=== PATIENT | female | born 1960 | race Hispanic/Latino ===

== ENCOUNTER 2021-07-02 08:19 | Emergency (ER) | payer MEDICARE, OTHER ==
[~2021-07-02] VITALS: Ht 157.5 cm; Wt 63.5 kg
[~2021-07-02 08:19] MED LIST: CIPR-278 PO
[2021-07-02] MEDS ORDERED: MELO7.5T12 PO (09:49)
[2021-07-02] MEDS ORDERED: ACET1TAB25 PO (09:49)
[2021-07-02] MEDS ORDERED: KETOROLAC 30MG VIAL (30MG/ML) ONE (09:56)
[2021-07-02] MEDS ORDERED: KETOROLAC 30MG VIAL (30MG/ML) IM ONE (10:00)
[2021-07-02 10:18] VITALS: BP 160/75
== END 2021-07-02 10:27 | disposition home or self-care (01) ==
LOC: EDH 08:19
DX: S52.592A Other fractures of lower end of left radius, initial encounter for closed fracture (principal); M19.90 Unspecified osteoarthritis, unspecified site; Z79.1 Long term (current) use of non-steroidal anti-inflammatories (NSAID); W18.31XA Fall on same level due to stepping on an object, initial encounter; Y93.89 Activity, other specified; Y92.89 Other specified places as the place of occurrence of the external cause; Y99.8 Other external cause status
CPT/HCPCS: 29125; 73110; 99283; J1885

== ENCOUNTER 2024-12-17 07:11 | Emergency (ER) | payer OTHER, MEDICARE ==
[~2024-12-17] VITALS: Ht 157.5 cm; Wt 55.3 kg
[~2024-12-17 07:11] MED LIST changes: +ACET-2079 PO; +MELO7.5T12 PO
--- NOTE | 2024-12-17 07:40 | ERN ---
General Chief Complaint: Rib Pain Stated Complaint: LEFT RIB CAGE PAIN Time Seen by MD: 07:15 History of Present Illness Initial Comments 64-year-old female who presents for left abdominal pain and left flank pain. Patient reports that eight days ago she had a fall where she fell to her back. No loss of consciousness. Since then she has been having pain to the left flank area. She reports that she feels pain "inside her organs." Mostly on the left flank and left upper quadrant. No nausea or vomiting diarrhea dysuria or fevers. There was no bruising or signs of major injury. Allergies: Coded Allergies: No Known Drug Allergies (Unverified Allergy, Unknown, 07/02/21) Home Meds Active Scripts Meloxicam (Mobic) 7.5 Mg Tablet, 7.5 MG PO DAILY, #10 TAB 0 Refills Prov:BRANDON MONET MD 07/02/21 Acetaminophen with Codeine (Acetaminophen-Cod #3 Tablet) 1 Each Tablet, 1 EACH PO Q6HPRN, #12 TAB 0 Refills Prov:BRANDON MONET MD 07/02/21 Ciprofloxacin HCl (Cipro) 500 Mg Tablet, 500 MG PO BID, #14 TAB Prov:ALDO MILLAN MD 11/02/15 Past Medical History Past Medical History: Arthritis Past Surgical History: None ROS Dictation CONSTITUTIONAL: No chills, no fever, no weakness, no diaphoresis, no malaise. HEAD/FACE: No signs of trauma. EENT: No eye pain, no blurred vision, no tearing, no double vision, no ear pain, no ear discharge, no nose pain, no nasal congestion, no throat pain, no throat swelling, no mouth pain. RESPIRATORY: No cough, no orthopnea, no SOB, no stridor, no wheezing. CARDIOVASCULAR: No chest pain, no edema, no palpitations, no syncope. GASTROINTESTINAL/ABDOMINAL: Left abdominal pain GENITOURINARY: No abnormal discharge, no dysuria, no frequent urination, no hematuria. No complaints of pain in the genitals. MUSCULOSKELETAL: Left flank pain INTEGUMENTARY: No change in color, no change in hair/nails, no dryness, no lesion, no lumps, no rash. NEUROLOGICAL/PSYCH: No anxiety, not depressed, no emotional problem, no headache, no numbness, no pre-existing deficit, no history of seizures, no tremors, no weakness. HEMATOLOGIC/LYMPHATIC: Not anemic, no history of blood clots, no apparent bleeding, no bruising, glands not swollen. All Systems Negative, Except as Noted. Physical Exam Physical Exam Dictation VITAL SIGNS: Reviewed. GENERAL APPEARANCE: Alert, oriented x3, no acute distress, obese. HEAD AND FACE: Non-traumatic. EYES: PERRL, pink conjunctivas, eyelid no trauma, anterior chamber clear. EARS: Pinnas intact and no signs of trauma or erythema. Ear canals clear and no discharge. TMs no erythema. NOSE: No discharge, no bleeding. OROPHARYNX: Mouth normal, teeth no caries, tongue pink. Pharynx clear, no erythema. Tonsils no exudates, no abscesses noted. Mucous membrane moist. NECK: Supple, non-tender, no thyromegaly, no masses, no JVD, no bruits. BREAST: Deferred. CHEST: No tenderness, no crepitus, no paradoxical movement, no retractions. LUNGS: Clear, well-ventilated, symmetric, no rales, no wheezing, no rhonchi, no stridor, good breath sounds bilaterally. HEART: Regular rate, regular rhythm, no murmur, no gallops. VASCULAR: No peripheral edema. ABDOMEN: Soft, positive bowel sounds, nondistended, no guarding, nontender, no rebound, no masses no hepatomegaly, no splenomegaly, no Rodarte's sign, no hernias. RECTAL: Deferred. GENITAL: Deferred. NEUROLOGICAL: Normal speech, gross motor function intact, gross sensory function intact. MUSCULOSKELETAL: Neck nontender, full range of motion, back nontender, full range of motion. EXTREMITIES: Nontender, full range of motion. SKIN: Color pink, dry, no turgor, no rash, no lacerations, no abrasions, no contusions. LYMPHATICS: Deferred. Results Laboratory and Microbiology Lab and Micro Result Laboratory Tests Test 12/17/24 08:00 12/17/24 08:34 White Blood Count 5.3 K/uL (4.8-10.8) Red Blood Count 3.48 MIL/uL (4.00-5.50) L Hemoglobin 11.4 g/dL (12.0-16.0) L Hematocrit 32.6 % (36-48) L Mean Corpuscular Volume 93.7 fL (79-99) Mean Corpuscular Hemoglobin 32.8 pg (27.0-33.0) Mean Corpuscular Hemoglobin Concent 35.0 g/dL (32.0-36.0) Red Cell Distribution Width 13.5 % (11.0-15.5) Platelet Count 432 K/uL (130-400) H Mean Platelet Volume 9.0 fL (7.5-10.5) Immature Granulocyte % (Auto) 0.2 % (0-1) Neutrophils (%) (Auto) 72.6 % (40.0-77.0) Lymphocytes (%) (Auto) 14.8 % (21.0-51.0) L Monocytes (%) (Auto) 10.3 % (3.0-13.0) Eosinophils (%) (Auto) 1.5 % (0.0-8.0) Basophils (%) (Auto) 0.6 % (0.0-5.0) Neutrophils # (Auto) 3.9 K/uL (1.8-7.7) Lymphocytes # (Auto) 0.8 K/uL (1.0-4.8) L Monocytes # (Auto) 0.6 K/uL (0.1-1.0) Eosinophils # (Auto) 0.08 K/uL (0.00-0.70) Basophils # (Auto) 0.03 K/uL (0.00-0.20) Absolute Immature Granulocyte (auto 0.01 K/uL (0-1) Nucleated Red Blood Cells 0.0 % (0.0-0.19) Sodium Level 129 mmol/L (136-145) L Potassium Level 3.7 mmol/L (3.5-5.1) Chloride Level 95 mmol/L (101-111) L Carbon Dioxide Level 28 mmol/L (21-32) Blood Urea Nitrogen 8 mg/dL (7-18) Creatinine 0.4 mg/dL (0.5-1.0) L Glomerular Filtration Rate Calc 109 mL/min (>90) Random Glucose 103 mg/dL (70-105) Total Calcium 9.6 mg/dL (8.5-10.1) Total Bilirubin 0.6 mg/dL (0.2-1.0) Direct Bilirubin 0.1 mg/dL (0.0-0.3) Aspartate Amino Transf (AST/SGOT) 28 U/L (10-37) Alanine Aminotransferase (ALT/SGPT) 28 U/L (12-78) Alkaline Phosphatase 101 U/L (50-136) Total Creatine Kinase 195 U/L (21-232) Troponin I High Sensitivity 5 ng/L (4-50) Total Protein 8.0 g/dL (6.0-8.3) Albumin 4.1 g/dL (3.5-5.0) Lipase 85 U/L (16-77) H Urine Color COLORLESS (YELLOW) Urine Appearance CLEAR (CLEAR) Urine pH 6.5 (5.0-8.0) Urine Specific Branch 1.004 (1.001-1.031) Urine Protein NEGATIVE mg/dL (NEGATIVE) Urine Glucose (UA) NEGATIVE mg/dL (NEGATIVE) Urine Ketones NEGATIVE mg/dL (NEGATIVE) Urine Occult Blood SMALL (NEGATIVE) H Urine Nitrate NEGATIVE (NEGATIVE) Urine Bilirubin NEGATIVE mg/dL (NEGATIVE) Urine Urobilinogen 0.2 mg/dL (0.2-1.0) Urine Leukocyte Esterase NEGATIVE Evelyn/uL Urine RBC 0-1 /HPF (0-1) Urine WBC None /HPF (0-1) Urine Bacteria None /HPF (None Seen) MDM CC: LUQ pain, L flank pain Historian: patient Comorbidities: Rheumatoid arthritis, recently diagnosed hypertension Limitations by social determinants of health: None Differential diagnosis: Trauma including splenic injury or internal injury, rib fracture, lung injury, kidney injury, infection, pyelonephritis, GI pathology, other. Vital signs: Stable, remained stable in the ER. EKG (independently ordered and interpreted by me): Sinus rhythm, rate 79, normal axis, good R-wave progression, intervals are stable no STEMI. Labs (independently ordered and interpreted by me): CBC is unremarkable, metabolic panel shows mild dehydration sodium 129 low chloride. Given fluids in the ER. Liver enzymes are normal lipase unremarkable CK troponin stable. Chest x-ray (independently interpreted by me): No cardiomegaly pleural effusions or focal infiltrates. CT of the abdomen and pelvis shows no acute abnormalities. Treatment in ED: IV Toradol, IV morphine, 1 L normal saline. Re-evaluation: Patient reports no further pain. Soft nontender abdomen. Nontoxic in appearance. Based on the clinical present patient I have low suspicion for any significant trauma, life threats, surgical pathology, sepsis, or other. Based on your symptoms she does possibly have UTI she has some blood in her urinary tract, we will treat with short course of Macrobid. We will also give Tylenol with codeine to use for pain at home. Patient says she has been follow up and will follow up with her PCP. ED Course Orders Procedure Category Date Status Time Cbc With Differential LAB 12/17/24 Complete 07:28 Troponin I High LAB 12/17/24 Complete Sensitivity 07:28 Urinalysis Profile LAB 12/17/24 Complete 07:28 Ct Abdomen/Pelvis CT 12/17/24 Resulted W/Contrast 07:28 Creatine Kinase, Total LAB 12/17/24 Complete 07:28 Lipase LAB 12/17/24 Complete 07:28 Basic Metabolic Panel LAB 12/17/24 Complete 07:28 12 Lead Ekg Tracing- EKG 12/17/24 Complete Technical 07:28 Chest 1vw RAD 12/17/24 Resulted 07:28 Hepatic Function Panel LAB 12/17/24 Complete 07:28 Ketorolac PHA 12/17/24 Complete Tromethamine 15mg/Ml 08:00 Morphine 4mg Syg PHA 12/17/24 Complete (Morphine 4mg Syg) 08:00 0.9%Nacl 1000ml (Ns PHA 12/17/24 Complete 1000ml) 08:30 Iohexol (Omnipaque) PHA 12/17/24 Complete 10:37 Current Medications Medications (Trade) Dose Ordered Sig/Arline Route PRN Reason Start Time Stop Time Status Last Admin Dose Admin Iohexol (Omnipaque) 35,000 mg STK-MED ONCE IV 12/17/24 10:37 12/17/24 10:37 DC Ketorolac Tromethamine (toRADol) 15 mg ONCE ONCE IV 12/17/24 08:00 12/17/24 08:01 DC 12/17/24 08:14 Morphine Sulfate (morPHINE 4MG SYG) 4 mg ONCE ONCE IVP 12/17/24 08:00 12/17/24 08:01 DC 12/17/24 08:14 Sodium Chloride 1,000 ml @ 0 mls/hr ONCE ONCE IV 12/17/24 08:30 12/17/24 08:31 DC 12/17/24 08:44 Vital Signs Date Time Temp Pulse Resp B/P (MAP) Pulse Ox O2 Delivery O2 Flow Rate FiO2 12/17/24 07:14 98.1 84 16 134/78 99 Room Air DX & DISP Disposition: Discharge Departure Impression: Primary Impression: UTI (urinary tract infection) Additional Impression: Gastritis Condition: Stable Scripts Nitrofurantoin/Nitrofuran Mac (Macrobid) 100 Mg Cap 1 CAP PO BID for 5 Days, #10 CAP 0 Refills Prov: JAQUAN BOWSER DO 12/17/24 Acetaminophen with Codeine (Acetaminophen-Cod #3 Tablet) 300 Mg-30 Mg Tablet 1 TAB PO Q6HPRN PRN for pain for 7 Days, #28 TAB 0 Refills Prov: JAQUAN BOWSER DO 12/17/24 Additional Instructions: Your symptoms may be related to gastritis or urinary tract infection. Your blood work (CBC with differential, metabolic panel, liver enzymes, tropo rony, CK, lipase) shows mild dehydration but is otherwise unremarkable. As we discussed, your urinalysis does show some occult blood. Based on your symptoms, I recommend a short course of antibiotics (Macrobid). I sent this to your pharmacy. You can also take [id number] [place] 0. The CT scan of your abdomen and pelvis shows no acute abnormalities. Your chest x-ray is normal. As we discussed, I recommend reducing your naproxen intake. This may be irritating her stomach. You can take [id number] Maalox or Pepto-Bismol as needed. I have prescribed Tylenol with codeine to use for significant pain. Please follow up with the primary doctor. As we discussed, you may need further studies or further referrals. Please return to the emergency department if you have any concerns. Referrals: DENISA SALDANA MD (PCP) JAQUAN BOWSER DO Dec 17, 2024 07:40
--- NOTE | 2024-12-17 07:43 | EKG ---
[facility] Test Date: 2024-12-17 Test Time: 07:38:20 Pat Name: JARED TERRY Department: [facility] Room: Gender: F Mixer Slagman: [id number] : 1960 Requested By: JAQUAN BOWSER Order Number: [id number] Reading MD: Abundio Khoury Measurements Intervals [place] Rate: 79 P: 65 [place]: 158 QRS: -3 QRSD: 105 T: 38 QT: 382 QTc: 439 Interpretive Statements Sinus rhythm Left atrial enlargement Compared to ECG 11/01/2015 04:06:27 Atrial abnormality now present Electronically Signed On 12-19-2024 14:39:43 CDT by Abundio Khoury Please click the below link to view image of tracing.
[2024-12-17 08:07] LABS: BASOPHILS # (AUTO) 0.03 K/uL (0.00-0.20); BASOPHILS % (AUTO) 0.6 % (0.0-5.0); EOSINOPHILS # (AUTO) 0.08 K/uL (0.00-0.70); EOSINOPHILS % (AUTO) 1.5 % (0.0-8.0); HEMATOCRIT 32.6 % (36-48); IMMATURE GRANULOCYTE ABSOLUTE 0.01 K/uL (0-1); LYMPHOCYTES # (AUTO) 0.8 K/uL (1.0-4.8); LYMPHOCYTES % (AUTO) 14.8 % (21.0-51.0); MEAN CORPUSCULAR HEMOGLOBIN 32.8 pg (27.0-33.0); MEAN CORPUSCULAR VOLUME 93.7 fL (79-99); MONOCYTES # (AUTO) 0.6 K/uL (0.1-1.0); MONOCYTES % (AUTO) 10.3 % (3.0-13.0); NEUTROPHILS # (AUTO) 3.9 K/uL (1.8-7.7); NEUTROPHILS % (AUTO) 72.6 % (40.0-77.0); PLATELET COUNT (AUTO) 432 K/uL (130-400); RED BLOOD CELL COUNT(AUTO) 3.48 MIL/uL (4.00-5.50); RED CELL DISTRIBUTION WIDTH 13.5 % (11.0-15.5); WHITE BLOOD COUNT (AUTO) 5.3 K/uL (4.8-10.8)
[2024-12-17] MEDS: ketOROlac 15MG/ML VIAL (15MG/ML) IV ONE (08:14)
[2024-12-17] MEDS: morPHINE 4 MG SYG IVP ONE (08:14)
[2024-12-17 08:21] LABS: ALBUMIN 4.1 g/dL (3.5-5.0); BILIRUBIN,DIRECT 0.1 mg/dL (0.0-0.3); BILIRUBIN,TOTAL 0.6 mg/dL (0.2-1.0); CREATININE 0.4 mg/dL (0.5-1.0); POTASSIUM 3.7 mmol/L (3.5-5.1)
[2024-12-17] MEDS: 0.9%NACL 1000ML 1,000 ML IV ONE (08:44)
[2024-12-17 08:48] LABS: APPEARANCE,URINE CLEAR (CLEAR); BILIRUBIN,URINE NEGATIVE (NEGATIVE); COLOR,URINE COLORLESS (YELLOW); GLUCOSE, URINE (UA) NEGATIVE (NEGATIVE); KETONES,URINE NEGATIVE (NEGATIVE); LEUKOCYTE ESTERASE ,URINE NEGATIVE Leu/uL (NEGATIVE); NITRATE,URINE NEGATIVE (NEGATIVE); OCCULT BLOOD,URINE SMALL (NEGATIVE); PH,URINE 6.5 (5.0-8.0); PROTEIN,URINE NEGATIVE (NEGATIVE); UROBILINOGEN,URINE 0.2 mg/dL (0.2-1.0)
[2024-12-17 08:51] LABS: ADD UA MICROSCOPIC YES
[2024-12-17 08:52] LABS: RBC,URINE 0-1 /HPF (0-1)
--- NOTE | 2024-12-17 10:04 | HMCIMG ---
Exam Type: CHEST 1VW Clinical Information: L sided lower abd pain Comparison: None Findings: The lungs are clear of infiltrates. The heart is enlarged. Bony and soft tissue structures of the chest wall are unremarkable. IMPRESSION: Cardiomegaly. Clear lungs.
--- NOTE | 2024-12-17 10:35 | NUR ---
PT TO CT AT THIS TIME.
[2024-12-17] MEDS ORDERED: IOHEXOL 350 MG/ML 100ML INFUS..BTL IV ONE (10:37)
--- NOTE | 2024-12-17 11:08 | HMCIMG ---
Exam Type: CT ABDOMEN/PELVIS W/CONTRAST Clinical Information: Abdominal Pain Comparison: None Contrast: 100 cc's Isovue 370 IV, no complications or adverse reactions CT Dose Index (CTDI): 31.60 mGy Dose Length Product (DLP): 1740.80 total mGy-cm Findings: No evidence of nephro or ureterolithiasis is found. No hydronephrosis or ureteral dilatation is seen. The lung bases are clear. The stomach is unremarkable. It shows no wall thickening. No gross ulceration is seen. It is not overly distended. There are no surrounding inflammatory changes. No wall lesions are identified to suggest cancer. The spleen is unremarkable. It is not enlarged. The pancreas shows normal anatomy. It is not fatty replaced. It shows no lesions. The pancreatic duct is not dilated. The gallbladder is unremarkable. It shows no cholelithiasis. The gallbladder wall is normal in thickness. There is no pericholecystic fluid. The is no acute or chronic inflammation noted. The adrenal glands are unremarkable. There is no enlargement. No lesions are noted. The liver is unremarkable. It shows no focal masses. The appendix is unremarkable. It shows no evidence of inflammation. No appendicolith is seen. The small bowel is unremarkable. There is no evidence of dilatation to suggest obstruction. No evidence of adynamic ileus is seen. There is no small bowel wall thickening to suggest enteritis. The colon is unremarkable. Distended urinary bladder. The other pelvic structures are unremarkable. There are old healed left-sided obturator ring fractures with residual deformity. IMPRESSION: Distended urinary bladder. This study was performed using dose reduction techniques to include automated exposure control and/or adjustment of the mA and/or kV according to patient size.
[2024-12-17 11:37] VITALS: BP 144/70; PULSE 70; RESP 20; TEMP 97.9; O2SAT 97
[2024-12-17] MEDS ORDERED: MACR100 PO (11:37)
[2024-12-17] MEDS ORDERED: ACET-2079 PO (11:37)
== END 2024-12-17 11:49 | disposition home or self-care (01) ==
LOC: EDH 07:11
DX: N39.0 Urinary tract infection, site not specified (principal); K29.70 Gastritis, unspecified, without bleeding; M19.90 Unspecified osteoarthritis, unspecified site; Z79.1 Long term (current) use of non-steroidal anti-inflammatories (NSAID)
CPT/HCPCS: 99284; 74177; 96374; 71045; 96361; 96375; 82550; 80076; 84484; 80048; 83690; 85025; 81001; 36415; 93005; J1885; J7030; J2270; Q9967